=== PATIENT | male | born 1970 | race Caucasian/White ===

== ENCOUNTER 2019-03-05 09:51 | Outpatient (CLI) | payer OTHER ==
[2019-03-07 07:38] LABS: A1C 5.5 % (<5.7)
== END 2019-03-05 09:56 ==
LOC: LAB 09:51
PROVIDERS: ATTEND Nurse Practitioner Family
DX: E78.5 Hyperlipidemia, unspecified (principal); E55.9 Vitamin D deficiency, unspecified; R73.03 Prediabetes
CPT/HCPCS: 36415; 80061; 82306; 83036